=== PATIENT | male | born 1965 | race Caucasian/White ===

== ENCOUNTER 2023-01-26 12:51 | Outpatient (CLI) | payer OTHER ==
--- NOTE | 2023-01-26 17:49 | XRAY Report ---
PROCEDURE: Shoulder 3 View RT INDICATIONS: RIGHT SHOULDER PAIN TECHNIQUE: 3 views of the shoulder were acquired. COMPARISON: None. FINDINGS: Bones: No fractures or dislocations. Normal glenohumeral alignment. Mild acromioclavicular joint sp nic narrowing. Normal glenohumeral and coracoclavicular intervals. No suspicious bony lesions. Visua lized ribs appear intact. Soft tissues: No suspicious soft tissue calcifications. The visualized lungs are within normal limi ts. IMPRESSION: 1.No acute bony abnormality. 2.Mild acromioclavicular joint osteoarthritis. Reviewed by: Jacqueline Mitchell MD on 01/26/2023 5:48 PM PST Approved by: Jacqueline Mitchell MD on 01/26/2023 5:48 PM PST Station ID: [id number]
== END 2023-01-26 12:52 | disposition home or self-care (01) ==
LOC: DI.N 12:51
PROVIDERS: ATTEND Registered Nurse
DX: M19.011 Primary osteoarthritis, right shoulder (principal)

== ENCOUNTER 2023-04-27 08:00 | Outpatient (CLI) | payer OTHER ==
--- NOTE | 2023-04-27 23:35 | XRAY Report ---
PROCEDURE: Shoulder 1 View RT INDICATIONS: RIGHT SHOULDER PAIN, AXIAL VIEW ONLY TECHNIQUE: Single axial view of the shoulder were acquired. COMPARISON: Right shoulder radiograph 01/26/2023. FINDINGS: Single axial view of the right shoulder demonstrates no acute osseous abnormality. IMPRESSION: No acute osseous abnormality seen on this single axillary view. Reviewed by: Nenita Jorgensen MD on 04/27/2023 10:34 PM [facility] Approved by: Nenita Jorgensen MD on 04/27/2023 10:34 PM [facility] Station ID: [id number]
== END 2023-04-27 08:01 | disposition home or self-care (01) ==
LOC: DI.WOS 08:00
PROVIDERS: ATTEND Physician Assistant Surgical
DX: M25.511 Pain in right shoulder (principal)